=== PATIENT | female | born 1950 | race Caucasian/White ===

== ENCOUNTER → 2017-04-23 | Outpatient (CLI) | payer OTHER ==
[2014-05-16 10:10] VITALS: BP 176/82
--- NOTE | 2017-04-25 12:11 | MG ---
HISTORY: SCREENING Comparison: 03/26/2016 FINDINGS: Bilateral CC and MLO projections of the right and left breast were obtained. Scattered fibroglandula r tissue is seen to be present. No significant architectural distortion, mass or clustered microcalc ifications can be observed to suggest malignancy. No skin thickening or nipple retraction is appreci ated. No pathological lymphadenopathy can be identified. Benign-appearing calcifications scattered throughout the right and left breasts are observed. IMPRESSION: NO RADIOGRAPHIC EVIDENCE OF MALIGNANCY. ACR CATEGORY: 2 - benign findings. FOLLOW-UP EXAM 1 YEAR. Diagnostic CAD was utilized and reviewed. * 0 (ZERO) - ASSESSMENT INCOMPLETE; ADDITIONAL IMAGING IS NEEDED. * 1/ (ONE) - NEGATIVE. * 2/II (TWO) - BENIGN FINDINGS. * 3/III (THREE) - PROBABLY BENIGN FINDING; SHORT INTERVAL FOLLOW-UP SUGGESTED. * 4/IV (FOUR) - SUSPICIOUS ABNORMALITY; BIOPSY SHOULD BE CONSIDERED. * 5/V - HIGHLY SUSPICIOUS OF MALIGNANCY; BIOPSY SHOULD BE PERFORMED. A NEGATIVE X-RAY REPORT SHOULD NOT DELAY BIOPSY IF A DOMINANT OR CLINICALLY SUSPICIOUS MASS IS PRESENT; 4 TO 8 PERCENT OF CANCERS ARE NOT IDENTIFIED BY X-RAY. A NEGA TIVE REPORT MAY REINFORCE THE CLINICAL IMPRESSION. ADENOSIS AND DENSE BREASTS MAY OBSCURE AN UNDERLY ING NEOPLASM. Reported By:
== END ==
LOC: RAD 09:49
PROVIDERS: ATTEND Nurse Practitioner Family
DX: Z12.31 Encounter for screening mammogram for malignant neoplasm of breast (principal)
CPT/HCPCS: 77067

== ENCOUNTER → 2017-05-05 | Outpatient (CLI) | payer OTHER ==
[2014-05-16 10:10] VITALS: BP 176/82
--- NOTE | 2017-05-05 11:08 | MRI ---
MRI BRAIN WITHOUT CONTRAST CLINICAL HISTORY: 67-year-old female with headaches on the right side of her head with short-term mem ory loss. COMPARISON: None. TECHNIQUE: Multiplanar, multisequence MR images of the brain were obtained without contrast. FINDINGS: Within the right temporal pole is an extra-axial appearing lesion that measures 2 x 2 x 1.5 cm (AP, t ransverse and craniocaudad) that demonstrates relative T1/T2 isointensity with surrounding vasogenic edema and local mass effect upon the temporal pole without herniation or midline shift. Lesion does n ot display diffusion restriction and is heterogenous on FLAIR sequencing. There is no evidence of diffusion restriction. The craniocervical junction is normal. Pituitary and o ptic nerve complex are normal. Multifocal punctate T2 FLAIR signal hyperintensities are present withi n the periventricular and supraventricular white matter that are nonspecific in appearance but most l ikely to represent microvascular white matter ischemic changes. Normal signal characteristics and mor phology are demonstrated within the cerebral cortex, corpus callosum, deep montoya nuclei, brainstem and cerebellum. The major vascular flow voids, to include the dural venous sinuses, are intact. Age adva nced cortical volume loss is present, with commensurate sulcal and ventricular prominence. The basila r cisterns are normal. The orbits and globes are within normal limits. The paranasal sinuses, tympanic cavities and mastoids are clear. IMPRESSION: 1. Lesion in the right temporal pole that appears extra-axial, however, further imaging with MR brain with contrast is needed for complete delineation; that produces mild mass effect upon the temporal p ole without midline shift or herniation. There is associated vasogenic edema. Differential considerat ions include, but are not limited to, meningioma, metastatic lesion and glioma. 2. No acute ischemic or hemorrhagic insult. 3. Mild, chronic microvascular white matter ischemic disease. Reported By:
== END ==
LOC: RAD 08:59
PROVIDERS: ATTEND Nurse Practitioner Family
DX: R41.82 Altered mental status, unspecified (principal); R41.3 Other amnesia; R51 Headache; Z81.8 Family history of other mental and behavioral disorders
CPT/HCPCS: 70551

== ENCOUNTER → 2017-07-01 | Outpatient (CLI) | payer OTHER ==
[2014-05-16 10:10] VITALS: BP 176/82
[2017-07-01 09:37] LABS: CREATININE 0.9 mg/dL (0.55-1.02)
== END ==
LOC: LAB 09:10
PROVIDERS: ATTEND Neurological Surgery
DX: D48.5 Neoplasm of uncertain behavior of skin (principal)
CPT/HCPCS: 36415; 82565; 84520

== ENCOUNTER → 2017-09-11 | Outpatient (CLI) | payer OTHER ==
[2014-05-16 10:10] VITALS: BP 176/82
--- NOTE | 2017-09-12 08:32 | US ---
HISTORY: Palpable lump below the left knee Study: Left lower extremity soft tissue ultrasound Comparison: None Technique: Multiple grayscale images of the left lower extremity were obtained. Findings: Targeted sonographic evaluation of the region of interest below the left knee in the left lower extre mity demonstrates no mass or fluid collection. IMPRESSION: Negative left lower extremity ultrasound. Reported By:
== END ==
LOC: RAD 09:20
PROVIDERS: ATTEND Nurse Practitioner Family
DX: R22.42 Localized swelling, mass and lump, left lower limb (principal)
CPT/HCPCS: 76881

== ENCOUNTER 2018-11-08 18:41 | Observation (INO) ==
[2018-11-08 18:54] VITALS: BMI 26.6
--- NOTE | 2018-11-08 19:19 | DR.EXTPAIN ---
HPI Time seen Time Seen by Provider: 11/08/18 19:02 PCP Primary Care Physician: Diaz GONZALEZ Complaint/Symptoms Chief Complaint Doctor Comments: Patient admits to seeing Dr. Reyes 2-3 weeks ago oncologist/insurance sales professional and 10 vials of blood drawn does not know reason. Two days ago blood cultures were drawn secondary to painful left lower extremity in the AM which hurts with pressure. She was seen by bi analyst one week ago but left leg is not getting better. She admits to swelling and pain of the left lower extremity with pitting edema and excoriated lesion of the mid left lower leg for one week. Chief Complaint:: 2/3DAYS AGO SKIN TEAR TO LEFT LOWER LEG. NOTED SKIN TEAR. NOW REDNESS, EDEMA, WARM TO TOUCH. PALPATED PULSES IN TRIAGE, NOTED 2+ PITTING EDEMA. Source History Provided: Patient Mode of arrival Mode of Arrival: Ambulatory Timing Onset of Chief Complaint: 11/06/18 PMH PMH Past Medical History: Yes Past Medical History: Hypertension Past Surgical History: Yes Surgical History: Appendectomy and Hysterectomy Family History History of Family Medical Conditions: Yes Family Medical History: Diabetes Mellitus Social History Does patient currently use any type of tobacco product: No Have you used tobacco products in the last 12 months: No Type of Tobacco Use: None Does any household member use tobacco: No Alcohol Use: None Do you use any recreational Drugs:: No Lives Where: Home infectious screening In the last 2 months have you had wt loss of >10#?: NO Have you had fever, night sweats or hemotysis?: No Have you traveled outside the country in the last 6 months?: No Isolation: Standard ROS Review of Systems Constitutional: No Symptoms Reported Eyes: No Symptoms Reported ENTM: No Symptoms Reported Respiratoy: No Symptoms Reported Cardiovascular: No Symptoms Reported Neurological: No Symptoms Reported Musculoskeletal: See HPI and Leg (left lower) Integumentary: See HPI and Lesions (left lower 1/3 with healing ulcer ) Psychiatric: No Symptoms Reported All Other Systems: Reviewed and Negative PE Vital Signs Vitals: Temperature 97.4 F Pulse Rate [Left] 85 Pulse Rate 85 Respiratory Rate 18 Blood Pressure [Left Arm] 145/65 Blood Pressure 145/65 O2 Sat by Pulse Oximetry 95 General Limitations: No Limitations General Appearance: Alert and In No Apparent Distress Head Head Exam: Normal Inspection, Atraumatic and Normocephalic Eyes Eye exam: Normal Appearance, PERRL and EOMI ENT ENT Exam: Normal Exam, Normal Oropharynx and Normal External Ear Exam Neck Neck Exam: Normal Inspection and Full ROM Respiratory Respiratory Exam: Normal Lung Sounds Bilat Respiratory Exam: Bilateral: Clear to Auscultation Cardiovascular Cardiovascular Exam: Regular Rate and Normal Rhythm Extremities Extremities Exam: Tenderness (pitting edema 2+ RLE with excoriated circular lesion 3cm in diameter), Edema and Joint Swelling Upper Extremities Shoulder Exam: Normal Inspection Arm Exam: Normal Inspection Neuromotor Exam: Normal Exam Lower Extremities Hip/Pelvis Exam: Normal Inspection and Full ROM Upper Leg Exam: Normal Inspection Knee Exam: Normal Inspection Lower Leg Exam: Normal Inspection, Tenderness (left lower extremity), Swelling, Erythema and Other (2+pitting) Foot/Toe Exam: Tenderness, Swelling and Erythema Neurovascular/Tendon Exam: Pallor Back Back Exam: Normal Inspection Neurological Neurological Exam: Alert, Oriented X3 and CN II-XII Intact Psychiatric Psychiatric Exam: Normal Affect, Normal Mood, Agitated, Anxious and Flat Affect Skin Skin Exam: Warm, Dry and Erythema Distribution: LLE Description: Tenderness, Erythematous, Papular and Crusting MDM Differential Diagnosis Differential Diagnosis: Abrasion and Other (infectous) COURSE Consultation Called: 20:35 Consultation Comments: Dr. Snider agreed to admit to his service for further treatment of her cellulitis ROR Labs Reviewed Result Diagrams: 11/08/18 19:35 11/08/18 19:35 Laboratory: WBC 8.3 X10^3/uL (3.6-10.0) 11/08/18 19:35 RBC 3.80 X10^6/uL (3.5-5.4) 11/08/18 19:35 Hgb 11.6 g/dL (12.0-16.0) L 11/08/18 19:35 Hct 34.5 % (36.0-47.0) L 11/08/18 19:35 MCV 91.0 fL (80.0-100.0) 11/08/18 19:35 MCH 30.6 pg (27.0-34.0) 11/08/18 19:35 MCHC 33.6 g/dL (33.0-35.0) 11/08/18 19:35 RDW 13.3 % (11.6-16.5) 11/08/18 19:35 Plt Count 388 X10^3/uL (150.0-450.0) 11/08/18 19:35 MPV 6.9 fL (7.4-11.0) L 11/08/18 19:35 Neut % (Auto) 63.7 % (42.0-75.0) 11/08/18 19:35 Lymph % (Auto) 26.1 % (21.0-51.0) 11/08/18 19:35 [place] % (Auto) 8.2 % (0.0-13.0) 11/08/18 19:35 Eos % (Auto) 1.0 % (0.9-2.9) 11/08/18 19:35 Baso % (Auto) 1.0 % (0.2-1.0) 11/08/18 19:35 Neut # (Auto) 5.3 x10^3/uL (2.2-4.8) H 11/08/18 19:35 Lymph # (Auto) 2.2 X10^3/uL (1.3-2.9) 11/08/18 19:35 [place] # (Auto) 0.7 x10^3/uL (0.3-0.8) 11/08/18 19:35 Eos # (Auto) 0.1 x10^3/uL (0.0-0.2) 11/08/18 19:35 Baso # (Auto) 0.1 X10^3/uL (0.0-0.1) 11/08/18 19:35 Absolute Nucleated RBC 0.0 /100WBC 11/08/18 19:35 Sodium 141 mmol/L (136-145) 11/08/18 19:35 Corrected Sodium TNP 11/08/18 19:35 Potassium 4.4 mmol/L (3.5-5.1) 11/08/18 19:35 Chloride 105 mmol/L (98-107) 11/08/18 19:35 Carbon Dioxide 27.5 mmol/L (21-32) 11/08/18 19:35 BUN 23 mg/dL (7-18) H 11/08/18 19:35 Creatinine 1.19 mg/dL (0.55-1.02) H 11/08/18 19:35 Est GFR (MDRD) Af Amer 58 (>60) L 11/08/18 19:35 Est GFR (MDRD) Non-Af 48 (>60) L 11/08/18 19:35 Glucose 108 mg/dL (65-99) H 11/08/18 19:35 Calcium 9.4 mg/dL (8.5-10.1) 11/08/18 19:35 Corrected Calcium TNP 11/08/18 19:35 Total Bilirubin 0.10 mg/dL (0.2-1.0) L 11/08/18 19:35 AST 15 Units/L (15-37) 11/08/18 19:35 ALT 21 Units/L (12-78) 11/08/18 19:35 Alkaline Phosphatase 101 Units/L (46-116) 11/08/18 19:35 C-Reactive Protein 5.30 mg/L (0-3.0) H 11/08/18 19:35 Total Protein 7.2 g/dL (6.4-8.2) 11/08/18 19:35 Albumin 3.7 g/dL (3.4-5.0) 11/08/18 19:35 Globulin 3.5 g/dL (2.5-4.5) 11/08/18 19:35 Albumin/Globulin Ratio 1.1 Ratio (1.1-2.1) 11/08/18 19:35
[2018-11-08 20:00] LABS: BASOPHILS # (AUTO) 0.1 X10^3/uL (0.0-0.1); EOSINOPHILS # (AUTO) 0.1 x10^3/uL (0.0-0.2); HEMATOCRIT 34.5 % (36.0-47.0); HEMOGLOBIN 11.6 g/dL (12.0-16.0); LYMPHOCYTES # (AUTO) 2.2 X10^3/uL (1.3-2.9); LYMPHOCYTES % (AUTO) 26.1 % (21.0-51.0); MEAN CORPUSCULAR HEMOGLOBIN 30.6 pg (27.0-34.0); MEAN CORPUSCULAR HGB CONC 33.6 g/dL (33.0-35.0); MEAN PLATELET VOLUME 6.9 fL (7.4-11.0); MONOCYTES # (AUTO) 0.7 x10^3/uL (0.3-0.8); MONOCYTES % (AUTO) 8.2 % (0.0-13.0); NEUTROPHILS # (AUTO) 5.3 x10^3/uL (2.2-4.8); NEUTROPHILS % (AUTO) 63.7 % (42.0-75.0); PLATELET COUNT 388 X10^3/uL (150.0-450.0); RED CELL DISTRIBUTION WIDTH 13.3 % (11.6-16.5); WHITE BLOOD COUNT 8.3 X10^3/uL (3.6-10.0)
[2018-11-08 20:10] LABS: ALANINE AMINOTRANSFERASE 21 Units/L (12-78); ALBUMIN 3.7 g/dL (3.4-5.0); ALKALINE PHOSPHATASE 101 Units/L (46-116); ASPARTATE AMINO TRANSFERASE 15 Units/L (15-37); BLOOD UREA NITROGEN 23 mg/dL (7-18); CALCIUM 9.4 mg/dL (8.5-10.1); CARBON DIOXIDE 27.5 mmol/L (21-32); CHLORIDE 105 mmol/L (98-107); CREATININE 1.19 mg/dL (0.55-1.02); SODIUM 141 mmol/L (136-145); TOTAL PROTEIN 7.2 g/dL (6.4-8.2); eGFR NON BLACK RACES 48 (>60)
[2018-11-08] MEDS ORDERED: ZOFRAN TAB 4 MG PO PRN (21:01)
[2018-11-08] MEDS ORDERED: MOTRIN TAB 600 MG PO PRN (21:01)
[2018-11-08] MEDS ORDERED: ZOSYN VIAL 3.375 GRAMS IV ONE (22:24)
[2018-11-08] MEDS ORDERED: NS 100 ML IV + SPIKE MINIBAG* 100 ML ONE (22:24)
[2018-11-08] MEDS ORDERED: D5 1/2 NS 1000 ML 1,000 ML ONE (22:25)
[2018-11-08] MEDS: D5 1/2 NS 1000 ML 1,000 ML IV SCH (22:37)
[2018-11-08] MEDS: ZOSYN VIAL 3.375 GRAMS 3.375 G in NS 100 ML IV + SPIKE MINIBAG* 100 ML IV SCH (22:37)
[2018-11-08] MEDS: DESYREL PO SCH (23:42)
[2018-11-08] MEDS: NORCO 7.5/325 MG TAB PO PRN (23:42)
[2018-11-09 05:17] LABS: BASOPHILS % (AUTO) 0.8 % (0.2-1.0); EOSINOPHILS # (AUTO) 0.1 x10^3/uL (0.0-0.2); EOSINOPHILS % (AUTO) 1.3 % (0.9-2.9); HEMATOCRIT 30.1 % (36.0-47.0); HEMOGLOBIN 10.1 g/dL (12.0-16.0); LYMPHOCYTES # (AUTO) 1.8 X10^3/uL (1.3-2.9); LYMPHOCYTES % (AUTO) 30.5 % (21.0-51.0); MEAN CORPUSCULAR HEMOGLOBIN 30.8 pg (27.0-34.0); MEAN CORPUSCULAR HGB CONC 33.5 g/dL (33.0-35.0); MEAN CORPUSCULAR VOLUME 91.8 fL (80.0-100.0); MEAN PLATELET VOLUME 7.2 fL (7.4-11.0); MONOCYTES # (AUTO) 0.5 x10^3/uL (0.3-0.8); MONOCYTES % (AUTO) 9.3 % (0.0-13.0); NEUTROPHILS # (AUTO) 3.4 x10^3/uL (2.2-4.8); NEUTROPHILS % (AUTO) 58.1 % (42.0-75.0); PLATELET COUNT 326 X10^3/uL (150.0-450.0); RED BLOOD COUNT 3.28 X10^6/uL (3.5-5.4); RED CELL DISTRIBUTION WIDTH 13.1 % (11.6-16.5); WHITE BLOOD COUNT 5.9 X10^3/uL (3.6-10.0)
[2018-11-09] MEDS: D5 1/2 NS 1000 ML 1,000 ML IV SCH ×4 (05:31→21:29)
[2018-11-09] MEDS: ZOSYN VIAL 3.375 GRAMS 3.375 G in NS 100 ML IV + SPIKE MINIBAG* 100 ML IV SCH ×3 (05:31→21:29)
[2018-11-09 05:34] LABS: ALANINE AMINOTRANSFERASE 18 Units/L (12-78); ALBUMIN 2.7 g/dL (3.4-5.0); ALKALINE PHOSPHATASE 76 Units/L (46-116); ASPARTATE AMINO TRANSFERASE 16 Units/L (15-37); BLOOD UREA NITROGEN 20 mg/dL (7-18); CALCIUM 8.7 mg/dL (8.5-10.1); CARBON DIOXIDE 25.6 mmol/L (21-32); CHLORIDE 108 mmol/L (98-107); COR CA(FOR HYPOALB) 9.7 mg/dL (8.5-10.1); COR NA(FOR HYPERGLY) 142 mmol/L (136-145); CREATININE 1.06 mg/dL (0.55-1.02); SODIUM 141 mmol/L (136-145); TOTAL PROTEIN 5.6 g/dL (6.4-8.2); eGFR NON BLACK RACES 54 (>60)
[2018-11-09] MEDS ORDERED: VITAMIN D (1.25MG) PO SCH ×2 (09:00)
[2018-11-09] MEDS: ZESTRIL TAB 10 MG PO SCH (09:35)
[2018-11-09] MEDS: CELEBREX PO SCH (09:35)
[2018-11-09] MEDS: EXELON PO SCH ×2 (09:35→20:28)
[2018-11-09] MEDS: MICRO K EXTEN CAP 10 MEQ PO SCH ×2 (09:35→20:28)
[2018-11-09] MEDS ORDERED: PHARMACY CONSULT - DOSE _____ XX SCH (10:00)
[2018-11-09] MEDS: LOVENOX INJ 40 MG SYR SC SCH (11:56)
[2018-11-09] MEDS: NORCO 7.5/325 MG TAB PO PRN ×2 (14:20→20:33)
[2018-11-09] MEDS: DESYREL PO SCH (20:28)
[2018-11-09] MEDS ORDERED: ZOCOR TAB 10 MG PO SCH (21:00)
[2018-11-10] MEDS: ZOSYN VIAL 3.375 GRAMS 3.375 G in NS 100 ML IV + SPIKE MINIBAG* 100 ML IV SCH (05:00)
[2018-11-10] MEDS: D5 1/2 NS 1000 ML 1,000 ML IV SCH (05:00)
[2018-11-10 05:06] LABS: BASOPHILS % (AUTO) 0.9 % (0.2-1.0); EOSINOPHILS # (AUTO) 0.1 x10^3/uL (0.0-0.2); EOSINOPHILS % (AUTO) 2.1 % (0.9-2.9); HEMATOCRIT 30.2 % (36.0-47.0); HEMOGLOBIN 9.9 g/dL (12.0-16.0); LYMPHOCYTES % (AUTO) 36.3 % (21.0-51.0); MEAN CORPUSCULAR HEMOGLOBIN 30.2 pg (27.0-34.0); MEAN CORPUSCULAR HGB CONC 32.8 g/dL (33.0-35.0); MEAN CORPUSCULAR VOLUME 92.2 fL (80.0-100.0); MEAN PLATELET VOLUME 7.1 fL (7.4-11.0); MONOCYTES # (AUTO) 0.5 x10^3/uL (0.3-0.8); MONOCYTES % (AUTO) 8.7 % (0.0-13.0); NEUTROPHILS # (AUTO) 2.9 x10^3/uL (2.2-4.8); PLATELET COUNT 329 X10^3/uL (150.0-450.0); RED BLOOD COUNT 3.27 X10^6/uL (3.5-5.4); RED CELL DISTRIBUTION WIDTH 13.2 % (11.6-16.5); WHITE BLOOD COUNT 5.6 X10^3/uL (3.6-10.0)
[2018-11-10 05:22] LABS: ALANINE AMINOTRANSFERASE 26 Units/L (12-78); ALBUMIN 2.6 g/dL (3.4-5.0); ALKALINE PHOSPHATASE 82 Units/L (46-116); ASPARTATE AMINO TRANSFERASE 26 Units/L (15-37); BLOOD UREA NITROGEN 14 mg/dL (7-18); CALCIUM 8.4 mg/dL (8.5-10.1); CHLORIDE 110 mmol/L (98-107); COR CA(FOR HYPOALB) 9.5 mg/dL (8.5-10.1); COR NA(FOR HYPERGLY) 142 mmol/L (136-145); CREATININE 0.97 mg/dL (0.55-1.02); SODIUM 142 mmol/L (136-145); TOTAL PROTEIN 5.3 g/dL (6.4-8.2); eGFR NON BLACK RACES > 60 (>60)
[2018-11-10] MEDS: CELEBREX PO SCH (09:24)
[2018-11-10] MEDS: EXELON PO SCH (09:24)
[2018-11-10] MEDS: MICRO K EXTEN CAP 10 MEQ PO SCH (09:24)
[2018-11-10] MEDS: ZESTRIL TAB 10 MG PO SCH (09:25)
[2018-11-10] MEDS: LOVENOX INJ 40 MG SYR SC SCH (09:25)
[2018-11-10 14:33] VITALS: BP 157/70
== END 2018-11-10 13:30 | disposition home or self-care (01) ==
LOC: MED/SURG 18:41 → ER 18:41 → MED/SURG 23:19
PROVIDERS: ADMIT Internal Medicine; ATTEND Internal Medicine
DX: L03.116 Cellulitis of left lower limb; E78.2 Mixed hyperlipidemia; R60.0 Localized edema; B95.62 Methicillin resistant Staphylococcus aureus infection as the cause of diseases classified elsewhere; R79.82 Elevated C-reactive protein (CRP); R94.4 Abnormal results of kidney function studies; I10 Essential (primary) hypertension; Z79.899 Other long term (current) drug therapy
CPT/HCPCS: 36415; 80053; 85025; 86140; 87040; 87070; 87075; 87077; 87186; 87205; 96365; 96374; 99218; 99284; A4216; A4222; G0378; J2543; J7050; S5010